=== PATIENT | female | born 2000 | race Caucasian/White ===

== ENCOUNTER 2022-04-12 16:12 | Emergency (ER) | payer OTHER ==
[~2022-04-12] VITALS: Ht 149.9 cm; Wt 41.3 kg
[2022-04-12 16:54] VITALS: BP_SYST 113
--- NOTE | 2022-04-12 16:59 | NUR ---
Patient triaged and placed in waiting room. VSS and patient appears in no acute distress at this time. Accompanied by SPOUSE, awaiting available bed, and MD notified of need for MSE.
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
[2022-04-12] MEDS ORDERED: ACET-2634 PO (19:01)
[2022-04-12] MEDS ORDERED: LIDO1ADH22 TP (19:01)
[2022-04-12] MEDS ORDERED: IBUP-1969 PO (19:01)
--- NOTE | 2022-04-12 19:30 | NUR ---
Patient given written and verbal discharge instructions and verbalizes understanding. ER MD discussed with patient the results and treatment provided. Patient in stable condition. ID arm band removed. Rx of IBUPROFEN LIDOCAINE AND TYLENOL given. Patient educated on pain management and to follow up with PMD. Opportunity for questions provided and answered. Medication side effect fact sheet provided.
[2022-04-12 19:31] VITALS: BP_SYST 113
== END 2022-04-12 19:31 | disposition home or self-care (01) ==
LOC: SED 16:12
DX: S29.012A Strain of muscle and tendon of back wall of thorax, initial encounter (principal); S46.911A Strain of unspecified muscle, fascia and tendon at shoulder and upper arm level, right arm, initial encounter; Z79.899 Other long term (current) drug therapy; V89.2XXA Person injured in unspecified motor-vehicle accident, traffic, initial encounter; Y93.89 Activity, other specified; Y92.89 Other specified places as the place of occurrence of the external cause; Y99.8 Other external cause status
CPT/HCPCS: 99282